=== PATIENT | female | born 1955 | race Caucasian/White ===

== ENCOUNTER 2019-05-08 12:19 | Inpatient (IN) | payer BC ==
[~2019-05-08] VITALS: Ht 162.6 cm; Wt 52.8 kg
[2019-05-08] MEDS: LISINOPRIL 5 MG TAB PO SCH (10:00)
[2019-05-08] MEDS ORDERED: LIDOCAINE 2%HCL (LOCAL ANESTH.) INJ 20ML MDV ONE (12:53)
[2019-05-08] MEDS ORDERED: IOHEXOL 350 MG/ML 100ML IJ ONE (12:54)
[2019-05-08] MEDS ORDERED: MIDAZOLAM HCL 1MG/1ML-2 ML VIAL ONE ×2 (12:56→13:22)
[2019-05-08] MEDS ORDERED: ATROPINE SULFATE 1 MG/1 ML VIAL ONE (12:56)
[2019-05-08] MEDS ORDERED: ANGIOMAX 250 MG VIAL IV ONE (12:56)
[2019-05-08] MEDS ORDERED: EPINEPHrine HCL 1 MG/10 ML SYRG ONE (12:56)
[2019-05-08] MEDS ORDERED: fentaNYL CITRATE 100 MCG/2 ML VL ONE (12:56)
[2019-05-08] MEDS ORDERED: SODIUM CHL 0.9% 0 ML ONE (12:57)
[2019-05-08 13:01] LABS: Basophils # (auto) 0.1 uL; Basophils % (auto) 0.5 % (0.0-2.0); Eosinophils # (auto) 0.1 uL; Eosinophils % (auto) 0.5 % (0.0-7.0); Hematocrit 44.5 % (36.0-46.0); Hemoglobin 14.7 g/dL (12.2-16.2); Lymphocytes # (auto) 1.6 uL; Lymphocytes % (auto) 11.6 % (10.0-50.0); Mean Corpuscular Hemoglobin 31.9 pg (28.0-32.0); Mean Corpuscular Hgb Conc. 33.1 g/dL (32.0-36.0); Mean Corpuscular Volume 96.1 fL (80.0-100.0); Monocytes # (auto) 0.6 uL; Monocytes % (auto) 4.3 % (0.0-12.0); Neutrophils # (auto) 11.6 uL; Neutrophils % (auto) 83.1 % (37.0-80.0); Platelet Count (auto) 324 10^3/uL (140-450); Red Blood Cells 4.63 10^6/uL (4.0-5.20); Red Cell Distribution Width 13.3 % (11.8-14.3)
[2019-05-08] MEDS ORDERED: MORPHINE SULF INJ 2 MG/ML SYRINGE 1ML IV PRN ×2 (13:15)
[2019-05-08] MEDS ORDERED: ONDANSETRON HCL 4 MG/2 ML VIAL IV PRN (13:15)
[2019-05-08] MEDS ORDERED: HYDROcodone-ACET 5/325MG TAB PO PRN (13:15)
[2019-05-08] MEDS ORDERED: ACETAMINOPHEN 500 MG TAB PO PRN (13:15)
[2019-05-08] MEDS ORDERED: NITROGLYCERIN 0.4 MG SL TAB SL PRN (13:15)
[2019-05-08] MEDS ORDERED: hydrALAZINE HCL 20 MG/ML VL IV PRN (13:15)
[2019-05-08 13:27] LABS: Calcium 9.5 mg/dL (8.5-10.1); Magnesium 2.4 mg/dL (1.6-2.6); Potassium 4.7 mmol/L (3.5-5.1)
[2019-05-08 13:33] LABS: BUN/Creatinine Ratio 24.4; Bilirubin, Total 0.5 mg/dL (0.2-1.0); Total Protein 7.7 g/dL (6.4-8.2)
[2019-05-08] MEDS ORDERED: LORazepam 2MG/ML-1ML VIAL ONE (13:40)
[2019-05-08] MEDS ORDERED: OPTISON 3ml Vial for INJ IV ONE (13:57)
[2019-05-08] MEDS ORDERED: LORazepam 2MG/ML-1ML VIAL IV ONE (14:00)
[2019-05-08 16:20] LABS: INR 0.96 (0.9-1.15); Partial Thromboplastin Time 29.1 sec (23.64-32.05)
--- NOTE | 2019-05-08 18:00 | NUR ---
Report received from Tonie JOHNSON. ANGELO BHANDARI brought to bed 296A following Cardiac catheterization, on alarm security or surveillance monitor. Patient transferred to unit bed, connected to air sampling and monitoring #[id number]. Catheterization site assessed for any bleeding, redness or swelling. Guaze and Tega derm in place. Pedal pulses on affected leg assessed for positive tissue perfusion. Patient instructed on need to notify staff immediately if any pain, burning or wetness to site, and any lower back pain. All questions and concerns addressed, patient verbalized understanding of all education and instruction. See notes for any further.
--- NOTE | 2019-05-08 18:58 | NUR ---
AMA TO LEAVE UNIT Patient requesting to leave unit to go outside. Patient denies going to smoke and states "I just need to get away". Patient educated on risks, AMA form signed and placed in front of chart.
[2019-05-08] MEDS ORDERED: B-COCAP4 OR (19:02)
[2019-05-08] MEDS ORDERED: ASCO500T11 PO (19:02)
[2019-05-08] MEDS ORDERED: TEMA15CA91 PO (19:02)
--- NOTE | 2019-05-08 19:30 | NUR ---
Opening Shift Note Report received from day shift RN. Assumed care of patient, awake and alert x4. No S/S of distress/SOB noted and denies pain at this time. Dressing to right groin CDI, no signs of hematoma formation, and pedal pulses palpable, foot warm to touch. Instructed on POC and to call for assist PRN, will continue to monitor for changes Q1hr and PRN.
[2019-05-08] MEDS: CARVEDILOL 3.125 MG TAB PO SCH (21:46)
[2019-05-08] MEDS: ATORVASTATIN 20 MG TAB PO SCH (21:55)
[2019-05-08 22:00] VITALS: BP 107/70
[2019-05-08] MEDS ORDERED: METOPROLOL TARTRATE 25 MG TAB PO SCH (22:00)
--- NOTE | 2019-05-09 02:27 | NUR ---
[facility] Hospitalist at 0000 and 0200 regarding critical lab value:troponin 10.3. Waiting for call back. Addendum: 05/09/19 at 0310 by CARRIE SUNG RN RN Patient denied any symptoms. Walking around hallway. States she feels fine.
--- NOTE | 2019-05-09 03:10 | NUR ---
Continuing to await for hospitalist to call back.
--- NOTE | 2019-05-09 07:15 | NUR ---
Opening shift note Report and continuation of care received,patient awake,alert and oriented. Patient's respiration even and unlabored, denies pain and discomfort at this time.oob,ambulates a lot. goes outside gait steady. Plan of care discussed and nursing routines patient verbalized understanding. All needs attended, call light within reach ,will continue to monitor.
[2019-05-09 07:25] LABS: INR < 0.93 (0.9-1.15); Partial Thromboplastin Time 27.9 sec (23.64-32.05)
[2019-05-09 08:09] LABS: Basophils # (auto) 0.1 uL; Basophils % (auto) 0.7 % (0.0-2.0); Eosinophils # (auto) 0.2 uL; Eosinophils % (auto) 2.2 % (0.0-7.0); Hematocrit 40.2 % (36.0-46.0); Hemoglobin 13.6 g/dL (12.2-16.2); Lymphocytes # (auto) 2.7 uL; Lymphocytes % (auto) 34.2 % (10.0-50.0); Mean Corpuscular Hemoglobin 32.1 pg (28.0-32.0); Mean Corpuscular Hgb Conc. 33.9 g/dL (32.0-36.0); Mean Corpuscular Volume 94.5 fL (80.0-100.0); Monocytes # (auto) 0.6 uL; Monocytes % (auto) 7.6 % (0.0-12.0); Neutrophils # (auto) 4.4 uL; Neutrophils % (auto) 55.3 % (37.0-80.0); Nucleated Red Blood Cells % 0.1 %; Platelet Count (auto) 298 10^3/uL (140-450); Red Blood Cells 4.26 10^6/uL (4.0-5.20)
[2019-05-09 08:14] LABS: Potassium 4.4 mmol/L (3.5-5.1)
[2019-05-09 08:27] LABS: Albumin 3.2 g/dL (3.4-5.0); Bilirubin, Total 0.5 mg/dL (0.2-1.0); Calcium 8.6 mg/dL (8.5-10.1); Total Protein 6.4 g/dL (6.4-8.2)
[2019-05-09 09:00] VITALS: BP 108/78
[2019-05-09] MEDS ORDERED: LISINOPRIL 10 MG TAB PO SCH (10:00)
[2019-05-09] MEDS: LISINOPRIL 5 MG TAB PO SCH (10:00)
[2019-05-09] MEDS: FAMOTIDINE 20 MG TAB PO SCH (10:00)
[2019-05-09] MEDS: CARVEDILOL 3.125 MG TAB PO SCH ×2 (10:00→21:16)
--- NOTE | 2019-05-09 10:00 | NUR ---
off unit ambulates ad agnieszka
[2019-05-09] MEDS: ASPirin-EC 81 mg tab PO SCH (11:35)
--- NOTE | 2019-05-09 11:39 | NUR ---
patient refused to take her medications ,Coreg,Pepcid and Zestril,stated "theres nothing wrong with me,my blood pressure is low and I do'nt have stomach problem to take Pepcid"
--- NOTE | 2019-05-09 11:45 | NUR ---
Nupur Frausto NP of Dr. Sepulveda informed and made aware that patient refused her cardiac meds.
[2019-05-09 13:00] VITALS: BP 100/69
--- NOTE | 2019-05-09 13:25 | NUR ---
Nupur Frausto LICENSED CLUB MANAGER cleared patient for discharge
[2019-05-09] MEDS ORDERED: FAM20T PO (14:02)
[2019-05-09] MEDS ORDERED: LISI-275 PO (14:02)
[2019-05-09] MEDS ORDERED: ASP81EC PO (14:02)
[2019-05-09] MEDS ORDERED: ATOR20TA50 PO (14:02)
[2019-05-09] MEDS ORDERED: CAR3125T PO (14:02)
--- NOTE | 2019-05-09 15:40 | NUR ---
STAN JONES NP OF DR. JOY INFORMED AND MADE AWARE THAT LIFE VEST NOT AVAILABLE AT THIS TIME
--- NOTE | 2019-05-09 16:15 | NUR ---
INFORMED JUN WIDE PIECE GOODS INSPECTOR REGARDING NEEDING LIFE VEST BEFORE DISCHARGE ORDERED YESTERDAY
--- NOTE | 2019-05-09 16:18 | NUR ---
INFORMED STAN JONES HOME SALES CONSULTANT LIFE VEST NOT AVAILABLE AT THIS TIME,STATED PATIENT NEEDED LIFE VEST PRIOR TO DISCHARGE
--- NOTE | 2019-05-09 16:25 | NUR ---
DR. JENSEN INFORMED OF PATIENT NEEDING LIFE VEST PRIOR TO DISCHARGE AND NOT AVAILABLE AT THIS TIME RECEIVED ORER TO CANCEL DISCHARGE.
--- NOTE | 2019-05-09 16:30 | NUR ---
RECEIVED CALL FROM MYNOR BLAKELY REP TO FAX FACE SHEET,H&P,CARDIOLOGY CONSULT,ECHO REPORT AND RAILROAD SIGNAL OPERATOR REPORT TO HER AT [phone]
[2019-05-09 17:00] VITALS: BP 107/69
--- NOTE | 2019-05-09 17:41 | NUR ---
FAXED FACE SHEET,H&P,CARDIOLOGY CONSULT,ECHO REPORT,STRIPING MACHINE OPERATOR REPORT TO MYNOR BLAKELY REP AT [phone]
--- NOTE | 2019-05-09 20:00 | NUR ---
CALLED HOSPITALIST AND ASKED A SLEEPING PILL FOR THE PATIENT. ORDERS MADE AND NOTED.
--- NOTE | 2019-05-09 20:10 | NUR ---
RECEIVED PATIENT IN BED, AAOX4. NO DISTRESS NOTED. AFEBRILE. INTRODUCED MYSELF TO THE PATIENT. NO SOB NOTED. DENIES ANY PAIN. PATIENT IS ANXIOUS. ADVISED PATIENT THAT SHE CAN'T BE AWAY FROM HER ROOM FOR MORE THAN 15 MINUTES PER HOSPITAL POLICY. SHOWED UNDERSTANDING. POCS DISCUSSED WITH PATIENT AND SHOWED UNDERSTANDING. BED KEPT ON LOWEST POSITION. SIDE RAILS UP. CALL LIGHT/TABLE IN REACH. KEPT COMFORTABLE.
[2019-05-09] MEDS ORDERED: TEMAZEPAM 15 MG CAP PO PRN (20:30)
[2019-05-09] MEDS: ATORVASTATIN 20 MG TAB PO SCH (21:15)
[2019-05-09 22:00] VITALS: BP 105/72
[2019-05-10 05:00] VITALS: BP 107/74
--- NOTE | 2019-05-10 06:22 | NUR ---
ON BED, ASLEEP. STABLE. NO DISTRESS NOTED. FOR MORE CARE AND MANAGEMENT.
--- NOTE | 2019-05-10 08:00 | NUR ---
Received pt resting in bed sleeping comfortably, call light within reach, no pain noted or reported. will continue to monitor pt.
[2019-05-10 09:00] VITALS: BP 110/75
[2019-05-10] MEDS: LISINOPRIL 5 MG TAB PO SCH (09:18)
[2019-05-10] MEDS: ASPirin-EC 81 mg tab PO SCH (09:19)
[2019-05-10] MEDS: FAMOTIDINE 20 MG TAB PO SCH (09:19)
[2019-05-10] MEDS: CARVEDILOL 3.125 MG TAB PO SCH (09:20)
--- NOTE | 2019-05-10 10:55 | NUR ---
[employer] life vest premium service representative at pt's bed side, as per premium service representative the life vest is pending authorization from the insurance.
[2019-05-10 13:00] VITALS: BP 127/72
--- NOTE | 2019-05-10 16:09 | NUR ---
Life vest delivered and measured to pt by [employer]. pt refused to wear the hospital tele monitor.
--- NOTE | 2019-05-10 16:39 | NUR ---
CALLED AND SPOKE TO DR. JENSEN AND INFORMED HER THAT THE LIFE VEST HAS BEEN DELIVERED AND PT IS ASKING WHEN WILL SHE BE D/C. ORDERS RECEIVE TO UPDATE THE D/C DATE ON THE D/C ORDER FROM YESTERDAY.
[2019-05-10 17:00] VITALS: BP 107/79
--- NOTE | 2019-05-10 17:49 | NUR ---
Discharge instructions given as ordered. Encourage to follow up with PMD and braddisher as instructed, doctors information given. All questions and concerns addressed. Patient verbalized understanding. Medication reconciliation form completed and copy given to patient. No home medications held in Pharmacy, and no needed vaccines to be given. IV removed with catheter intact, pressure dressing applied. Telemetry unit was removed by pt and returned to [facility].
[2019-05-10] MEDS ORDERED: FLUoxetine HCL 20 MG CAP PO SCH (18:00)
--- NOTE | 2019-05-10 18:00 | NUR ---
Patient walked out of the hospital with all personal belongings. No distress noted at time of departure.
== END 2019-05-10 18:00 | disposition home or self-care (01) | DRG 281 ==
LOC: ER 12:19 → CATH 1 13:21 → TELE-WESTW 13:22
PROVIDERS: ADMIT Internal Medicine; ATTEND Internal Medicine Nephrology
PROC: 4A023N7 Measurement of Cardiac Sampling and Pressure, Left Heart, Percutaneous Approach (ICD-10-PCS; principal; 2019-05-08)
PROC: B2111ZZ Fluoroscopy of Multiple Coronary Arteries using Low Osmolar Contrast (ICD-10-PCS; 2019-05-08)
PROC: B2151ZZ Fluoroscopy of Left Heart using Low Osmolar Contrast (ICD-10-PCS; 2019-05-08)
DX: I21.29 ST elevation (STEMI) myocardial infarction involving other sites (principal); I51.81 Takotsubo syndrome; D72.829 Elevated white blood cell count, unspecified; F41.1 Generalized anxiety disorder; Z88.2 Allergy status to sulfonamides; Z79.899 Other long term (current) drug therapy; Z87.891 Personal history of nicotine dependence
CPT/HCPCS: 36415; 71045; 80053; 80061; 83735; 84484; 85025; 85610; 85730; 86141; 86850; 86900; 86901; 93005; 93306; 94761; 96374; C1887; G0378; J0461; J2250; Q9956